=== PATIENT | male | born 1935 | race Caucasian/White ===

== ENCOUNTER → 2016-05-16 | Outpatient (CLI) | payer MEDICARE, OTHER ==
[~2016-05-16] MED LIST: ADVAIR 100/501 DISK IH; ADVIL,NUPRIN,M200 MG PO; HORMONE; IMODIUM MS REL1 EACH PO; LIPITOR10 MG PO; LOMOTIL TABLET1 EACH PO; LOVASTATIN20 MG PO; MOBIC7.5 MG PO; MORPHINE SULFAT15 M1 PO; MOTRIN800 MG PO; NEURONTIN100 MG PO; NEURONTIN600 MG PO; OMEPRAZOLE20 MG PO; OMEPRAZOLE40 M1 PO; PERCOCET 5/31 TABLET PO; SINGULAIR10 MG PO; TAMSULOSIN HCL0.4 MG PO; ZAFIRLUKAST20 M1 PO
== END | disposition home or self-care (01) ==
LOC: CDC 08:47
DX: I44.4 Left anterior fascicular block (principal); I45.10 Unspecified right bundle-branch block; M48.06 Spinal stenosis, lumbar region; M54.16 Radiculopathy, lumbar region
CPT/HCPCS: 93000

== ENCOUNTER 2016-05-31 11:46 | Day surgery (SDC) | payer OTHER ==
[~2016-05-31] VITALS: Ht 188 cm; Wt 99.0 kg
[2016-05-31 12:26] VITALS: BP 136/66
[2016-05-31 21:56] VITALS: BP 113/60
[2016-05-31 23:48] VITALS: BP 75/53; BP 87/46
[2016-06-01 03:10] VITALS: BP 97/53
[2016-06-01 06:47] VITALS: BP 100/58
[2016-06-01 11:35] VITALS: BP 120/58
== END 2016-06-01 15:21 | disposition home or self-care (01) ==
LOC: SDC 11:46 → 2EAST 17:46 → 2SOUTH 17:46 → 2EAST 21:18
DX: M48.06 Spinal stenosis, lumbar region (principal); M47.896 Other spondylosis, lumbar region; M41.9 Scoliosis, unspecified; J45.909 Unspecified asthma, uncomplicated; E78.5 Hyperlipidemia, unspecified; G47.33 Obstructive sleep apnea (adult) (pediatric)
CPT/HCPCS: 72100; 76000; 94640; 94640 76; 94667; 94668; 94799; 99202; G0378; J0690; J1170; J2250; J2710; J2930; J3010; J3480; S0020

== ENCOUNTER 2016-11-07 08:51 | Day surgery (SDC) | payer OTHER ==
[~2016-11-07] VITALS: Ht 185.4 cm; Wt 99.8 kg
== END 2016-11-07 10:05 | disposition home or self-care (01) ==
LOC: PAIN 08:51 → SDC 09:45 → PAIN 10:05
DX: M47.26 Other spondylosis with radiculopathy, lumbar region (principal); M51.16 Intervertebral disc disorders with radiculopathy, lumbar region; M48.06 Spinal stenosis, lumbar region; I10 Essential (primary) hypertension; K21.9 Gastro-esophageal reflux disease without esophagitis; Z85.46 Personal history of malignant neoplasm of prostate; E78.00 Pure hypercholesterolemia, unspecified; E66.9 Obesity, unspecified; Z68.32 Body mass index [BMI] 32.0-32.9, adult; Z87.891 Personal history of nicotine dependence; J45.909 Unspecified asthma, uncomplicated
CPT/HCPCS: J1030; J3010; S0020

== ENCOUNTER → 2017-04-25 | Outpatient (CLI) | payer MEDICARE, OTHER | END | disposition home or self-care (01) | LOC: CDC 10:19 | DX: Z01.810 Encounter for preprocedural cardiovascular examination (principal); I45.10 Unspecified right bundle-branch block; I44.4 Left anterior fascicular block; I44.0 Atrioventricular block, first degree | CPT/HCPCS: 93000 ==

== ENCOUNTER 2017-05-09 22:20 | Inpatient (IN) | payer OTHER ==
[~2017-05-09] VITALS: Ht 175.3 cm; Wt 101.9 kg
[~2017-05-09 22:20] MED LIST changes: +HYDROCODON-ACE1 EAC8 PO
[2017-05-10] MEDS ORDERED: ULTRAM50 MG PO (10:29)
[2017-05-10 10:30] VITALS: BP 114/63
[2017-05-10 16:46] LABS: HEMATOCRIT 31.8 % (38.0-50.0); MCH 32.2 PG (29.0-34.0); MCV 97.5 FL (86-99); RBC DIS.WIDTH-CV 14.9 % (11.8-14.6); RED BLOOD COUNT 3.26 M/uL (4.00-5.50); WHITE BLOOD COUNT 4.9 K/uL (4.1-10.2)
[2017-05-10 16:59] LABS: HEMOGLOBIN 10.5 G/DL (12.5-16.6); PLATELET COUNT 127 K/uL (156-360)
[2017-05-10 17:01] LABS: CHLORIDE 107 MEQ/L (99-109); CREATINE KINASE 62 IU/L (1-294); GFR ESTIMATE (CALCULATED) > 59 mL/min/ (58.99-99999); GLUCOSE 123 mg/dL (70-99); POTASSIUM 3.8 MEQ/L (3.7-5.4); SODIUM 139 MEQ/L (136-147); TOTAL CK 62 IU/L (1-294); UREA NITROGEN (BUN) 16 mg/dL (9-23)
[2017-05-10 17:27] LABS: CK-MB 1.2 ng/mL (0.0-4.9); CKMB RELATIVE INDEX 1.9 (0.0-3.9)
[2017-05-10 18:26] VITALS: BP 119/57
[2017-05-10 20:00] VITALS: BP 110/59
[2017-05-10 23:50] VITALS: BP 112/65
[2017-05-11 03:48] VITALS: BP 111/80
[2017-05-11 05:50] LABS: HEMATOCRIT 32.2 % (38.0-50.0); HEMOGLOBIN 10.6 G/DL (12.5-16.6); MCH 31.3 PG (29.0-34.0); MCHC 32.9 G/DL (30.0-36.0); RBC DIS.WIDTH-CV 14.4 % (11.8-14.6); RBC DIS.WIDTH-SD 49.9 % (39-53); RED BLOOD COUNT 3.39 M/uL (4.00-5.50)
[2017-05-11 05:53] LABS: PLATELET COUNT 172 K/uL (156-360)
[2017-05-11 06:25] LABS: CHLORIDE 106 MEQ/L (99-109); CREATINE KINASE 48 IU/L (1-294); GFR ESTIMATE (CALCULATED) > 59 mL/min/ (58.99-99999); GLUCOSE 146 mg/dL (70-99); POTASSIUM 4.1 MEQ/L (3.7-5.4); SODIUM 140 MEQ/L (136-147); TOTAL CK 48 IU/L (1-294); UREA NITROGEN (BUN) 13 mg/dL (9-23)
[2017-05-11 06:59] LABS: CK-MB 1.3 ng/mL (0.0-4.9); CKMB RELATIVE INDEX 2.7 (0.0-3.9)
[2017-05-11 07:43] VITALS: BP 114/59
== END 2017-05-11 10:41 | disposition home or self-care (01) | DRG 269 ==
LOC: ENRESERV 22:20 → 2SOUTH 05-10 07:53 → ENRESERV 05-10 09:27 → 2SOUTH 05-10 09:42 → 4EAST 05-10 09:42 → 2SOUTH 05-10 11:03 → ENRESERV 05-10 15:39 → CANRESERV 05-10 17:01 → ENRESERV 05-10 17:01 → 4EAST 05-10 17:53
PROVIDERS: Surgery
PROC: 04V03DZ Restriction of Abdominal Aorta with Intraluminal Device, Percutaneous Approach (ICD-10-PCS; principal; 2017-05-10)
DX: I71.4 Abdominal aortic aneurysm, without rupture (principal); J44.9 Chronic obstructive pulmonary disease, unspecified; N40.0 Benign prostatic hyperplasia without lower urinary tract symptoms; K21.9 Gastro-esophageal reflux disease without esophagitis; E78.5 Hyperlipidemia, unspecified; E66.9 Obesity, unspecified; Z85.46 Personal history of malignant neoplasm of prostate; Z68.32 Body mass index [BMI] 32.0-32.9, adult; Z87.891 Personal history of nicotine dependence
CPT/HCPCS: 80048; 82550; 82553; 85027; 86850; 86900; 86901; 93005; C1725; C1769; C1894; J0690; J1100; J1170; J1644; J2405; J2720; J3010; J7120